=== PATIENT | male | born 1985 | race Caucasian/White ===

== ENCOUNTER 2018-10-31 12:03 | Emergency (ER) | payer MEDICAID ==
[~2018-10-31] VITALS: Ht 172.7 cm; Wt 89.0 kg
[2018-10-31 12:09] VITALS: BP 162/72
--- NOTE | 2018-10-31 12:42 | NUR ---
CHRONIC BACK PAIN. PAIN MANAGEMENT TOLD HIM THEY CANNOT SEE HIM. PT HAVING PAIN FLARE UP FOR 2 WEEKS. REQUESTING PAIN MED SCRIP
== END 2018-10-31 12:50 | disposition home or self-care (01) ==
LOC: ED 12:39
DX: G89.29 Other chronic pain (principal); M79.671 Pain in right foot; M54.5 Low back pain; Z76.0 Encounter for issue of repeat prescription
CPT/HCPCS: 99283

== ENCOUNTER 2019-02-02 11:42 | Emergency (ER) | payer MEDICAID ==
[~2019-02-02] VITALS: Ht 170.2 cm; Wt 83.4 kg
[2019-02-02 11:44] VITALS: BP 153/87
[2019-02-02] MEDS ORDERED: LORazepam 1MG TABLET ONE (12:07)
[2019-02-02] MEDS ORDERED: LORazepam 1MG TABLET PO ONE (12:30)
== END 2019-02-02 12:29 | disposition home or self-care (01) ==
LOC: ED 12:04
DX: F41.1 Generalized anxiety disorder (principal); F90.9 Attention-deficit hyperactivity disorder, unspecified type; Z76.0 Encounter for issue of repeat prescription
CPT/HCPCS: 99283

== ENCOUNTER 2020-01-09 15:03 | Emergency (ER) | payer MEDICAID ==
[~2020-01-09] VITALS: Ht 170.2 cm; Wt 83.0 kg
[2020-01-09 15:10] VITALS: BP 153/93
[2020-01-09] MEDS ORDERED: LIDOCAINE-MPF 1%, 5ML ONE (15:21)
[2020-01-09] MEDS ORDERED: NEOSPORIN OINT. PKT 1 PACKET ONE (15:22)
[2020-01-09] MEDS ORDERED: LORazepam 1MG TABLET ONE (15:37)
--- NOTE | 2020-01-09 15:57 | NUR ---
RECEIVED REPORT FROM RAJ WARE, ASSUMING CARE OF PT
--- NOTE | 2020-01-09 15:57 | NUR ---
Pt here with middle right finger laceration in webbing, pts finger gettign very swollen immediatelly went to cut, md camargo provided local infiltration of lidocaine. Pt tolerating well. pt given 1mg ativan po for anxiety. report to sophia fernandes RN and Devyn HAYWOOD to finish cutting.
[2020-01-09] MEDS ORDERED: DIPH,PERTUSS(ACELL),TET VAC/PF 0.5 ML IM-VACC ONE ×2 (16:00)
[2020-01-09] MEDS ORDERED: LORazepam 1MG TABLET PO ONE (16:00)
[2020-01-09] MEDS ORDERED: LIDOCAINE-MPF 1%, 5ML INFIL ONE (16:00)
--- NOTE | 2020-01-09 17:00 | NUR ---
PT RIGHT HAND SUTURED BY PA. STILL UNABLE TO GET PT RING OFF, ALL ATTEMPTS UNSUCCESSFUL AT THIS TIME.
[2020-01-09] MEDS ORDERED: BUPIVACAINE 0.25% ONE (17:40)
--- NOTE | 2020-01-09 17:43 | NUR ---
TECH STILL AT BEDSIDE TRYING TO GET RING OFF. MD AT BEDSIDE WELL.
--- NOTE | 2020-01-09 18:25 | NUR ---
NELSON CUTTER RESTOCKED AND RETURNED TO [facility] IN WORKING CONDITION.
== END 2020-01-09 18:29 | disposition home or self-care (01) ==
LOC: ED 17:02
DX: S61.411A Laceration without foreign body of right hand, initial encounter (principal); G89.29 Other chronic pain; X58.XXXA Exposure to other specified factors, initial encounter; Y93.89 Activity, other specified; Y92.098 Other place in other non-institutional residence as the place of occurrence of the external cause; Y99.8 Other external cause status
CPT/HCPCS: 12041; 90471; 90715; 99284